=== PATIENT | female | born 1970 | race African-American/Black ===

== ENCOUNTER 2017-09-20 10:37 | Emergency (ER) | payer SELFPAY ==
[2017-09-20 10:44] VITALS: TEMP 98.6; BMI 23.3
[2017-09-20] MEDS ORDERED: SODIUM CHLORIDE 1,000 ML IV STA (11:28)
[2017-09-20] MEDS ORDERED: METOCLOPRAMIDE HCL INJECTION 10 MG/2 ML VIAL IVPUSH ONE (11:28)
[2017-09-20] MEDS ORDERED: KETOROLAC TROMETHAMINE 15 MG/ML VIAL IVPUSH ONE (11:29)
[2017-09-20] MEDS ORDERED: METOCLOPRAMIDE HCL INJECTION 10 MG/2 ML VIAL ONE (11:35)
[2017-09-20] MEDS ORDERED: KETOROLAC TROMETHAMINE 15 MG/ML VIAL ONE (11:35)
--- NOTE | 2017-09-20 11:36 | PDOC ---
History of Present Illness - General Chief Complaint: Migraine Headache Stated Complaint: MIGRAINES Time Seen by Provider: 09/20/17 11:08 - History of Present Illness Initial Comments: 09/20/17 11:32 Ms. Hallman is a 46 yo female w/ pmh of Migraines who presents c/o a 2 day history of severe headache. She says it was slow in onset and is a pressing feeling in the front of her head. It is not the worst headache of her life but she rates it as severely painful. She typically takes triptans for her migraines but ran out of insurance and so was not able to fulfill her Rx. The patient denies chest pain, shortness of breath, and dizziness. Denies fever , chills, nausea, vomit, diarrhea and constipation. Denies dysuria, frequency, urgency and hematuria. Allergies: NKDA Past History - Past Medical History Allergies/Adverse Reactions: Allergies Allergy/AdvReac Type Severity Reaction Status Date / Time No Known Allergies Allergy Verified 09/20/17 10:44 Home Medications: Ambulatory Orders Topiramate [Topamax] 50 mg PO ONCE PRN #14 tablet 09/20/17 COPD: No Other medical history: MIGRAINES - Suicide/Smoking/Psychosocial Hx Smoking History: Never smoked Have you smoked in the past 12 months: No Hx Alcohol Use: No Drug/Substance Use Hx: No Substance Use Type: None Review of Systems - Review of Systems Comments:: 09/20/17 11:36 GENERAL/CONSTITUTIONAL: No fever or chills. No weakness. HEAD, EYES, EARS, NOSE AND THROAT: No change in vision. No ear pain or discharge. No sore throat. CARDIOVASCULAR: No chest pain or shortness of breath RESPIRATORY: No cough, wheezing, or hemoptysis. GASTROINTESTINAL: No nausea, vomiting, diarrhea or constipation. GENITOURINARY: No dysuria, frequency, or change in urination. MUSCULOSKELETAL: No joint or muscle swelling or pain. No neck or back pain. SKIN: No rash NEUROLOGIC: +2 day headache as described. No vertigo, loss of consciousness, or change in strength/sensation. ENDOCRINE: No increased thirst. No abnormal weight change HEMATOLOGIC/LYMPHATIC: No anemia, easy bleeding, or history of blood clots. ALLERGIC/IMMUNOLOGIC: No hives or skin allergy. *Physical Exam - Vital Signs Last Vital Signs Temp Pulse Resp BP Pulse Ox 98.6 F 102 H 18 140/85 100 09/20/17 10:41 09/20/17 10:41 09/20/17 10:41 09/20/17 10:41 09/20/17 10:41 - Physical Exam Comments: 09/20/17 11:36 GENERAL: Awake, alert, and fully oriented, in no acute distress HEAD: No signs of trauma, normocephalic, atraumatic EYES: PERRLA, EOMI, sclera anicteric, conjunctiva clear ENT: Auricles normal inspection, hearing grossly normal, nares patent, oropharynx clear without exudates. Moist mucosa NECK: Normal ROM, supple, no lymphadenopathy, JVD, or masses LUNGS: No distress, speaks full sentences, clear to auscultation bilaterally HEART: Regular rate and rhythm, normal S1 and S2, no murmurs, rubs or gallops, peripheral pulses normal and equal bilaterally. ABDOMEN: Soft, nontender, normoactive bowel sounds. No guarding, no rebound. No masses EXTREMITIES: Normal inspection, Normal range of motion, no edema. No clubbing or cyanosis. NEUROLOGICAL: Cranial nerves II through XII grossly intact. Normal speech, normal gait, no focal sensorimotor deficits SKIN: Warm, Dry, normal turgor, no rashes or lesions noted. Medical Decision Making - Medical Decision Making 09/20/17 11:39 Patient presents w/ symptoms c/w migraine with migraine history. Given slow onset of symptoms and no neurological deficits concern for acute cranial process low. 09/20/17 12:58 Patient reporting relief of headache with IV hydration / pain medication. Will d /c to home once fluids have finished w/ Rx for migraine relief. 09/20/17 14:26 Patient resting comfortably, topamax Rx sent to pharmacy and neurology follow- up given. Discharging patient. *DC/Admit/Observation/Transfer Diagnosis at time of Disposition: Migraine Qualifiers: Migraine type: unspecified Status migrainosus presence: without status migrainosus Intractability: not intractable Qualified Code(s): G43.909 - Migraine, unspecified, not intractable, without status migrainosus - Discharge Dispostion Disposition: HOME - Prescriptions Prescriptions: Topiramate [Topamax] 50 mg PO ONCE PRN #14 tablet PRN Reason: Headache - Referrals - Patient Instructions Printed Discharge Instructions: DI for Migraine Additional Instructions: Please return if any fever, increase in pain, or other concerning symptoms. - Post Discharge Activity
--- NOTE | 2017-09-20 11:51 | PDOC ---
Attending Attestation - HPI HPI: 09/20/17 12:12 Pt is a 46 yo F with a PMHx of Migraines who presents to the ED with migraines for the past 2 days. Patient reports sharp, throbbing, headache, 10/10 with associated nausea and light sensitivity. Patient reports her migraines are similar to what she experiences in the past. Patient ran out of her medications due to insurance issues. - Physicial Exam PE: 09/20/17 12:13 Vitals: Triage Vital signs reviewed General Appearance: no acute distress, well nourished well developed, Head: Atraumatic, normocephalic Neck: Supple;No Nuchal rigidity Chest Wall: Nontender Cardiac: Regular rate and rhythm, no murmurs, no rubs, no gallops, Lungs: Clear to auscultation bilateral, good air movement bilaterally, Abdomen: Soft, nondistended, normal bowel sounds, nontender to palpation Extremities: Full range of motion to all extremities, no cyanosis, clubbing, or edema Skin: Warm and dry, no rashes or lesions, no petechiae - Medical Decision Making 09/20/17 12:13 Documentation prepared by Tavia Umanzor, acting as manager medical for Cruz Peters MD, /DO. <Tavia Umanzor - Last Filed: 09/20/17 12:20> - Resident Resident Name: EnricofrankSiddharth - ED Attending Attestation I have performed the following: I have examined & evaluated the patient, The case was reviewed & discussed with the resident, I agree w/resident's findings & plan, Exceptions are as noted - HPI HPI: 09/20/17 16:54 Chin with chronic headache history. No red flags on headache history ran out of her topiramate at home normal neurologic examination we'll treat with basic migraine medications and reassess Reevaluation headache completely resolved patient asking to go home we'll discharge with prescription for topiramate neurology follow-up Findings, the need for follow-up and strict return instructions discussed with patient. <Cruz Peters - Last Filed: 09/20/17 16:55>
[2017-09-20] MEDS ORDERED: TOPIRAMATE 25 MG TABLET (FP) PO ONE (11:58)
[2017-09-20] MEDS ORDERED: TOPIRAMATE 25 MG TABLET (FP) ONE (12:05)
[2017-09-20 14:55] VITALS: BP 115/76; PULSE 68
== END 2017-09-20 14:55 | disposition home or self-care (01) ==
LOC: JER 10:37 → JERFT 10:37 → JER 14:55
DX: G43.909 Migraine, unspecified, not intractable, without status migrainosus (principal)
CPT/HCPCS: 84703; 99283-25

== ENCOUNTER 2018-11-14 16:31 | Emergency (ER) | payer OTHER ==
[2018-11-14 16:48] VITALS: PULSE 78; TEMP 98.2; BMI 29.0
[2018-11-14 16:49] VITALS: BP 133/76
--- NOTE | 2018-11-14 17:51 | PDOC ---
History of Present Illness - General Chief Complaint: Pain Stated Complaint: LT FOOT PAIN Time Seen by Provider: 11/14/18 17:22 History Source: Patient Exam Limitations: No Limitations - History of Present Illness Initial Comments: 11/14/18 17:45 48 year old female with no significant medical history and surgical history of right knee surgery, present with left foot pain x 3 days. Patient reports pain from ankle radiating into heel of left foot making it difficult to walk. Denies numbness or tingling in toes. Occurred: reports: other (3 days ) Severity: Yes: moderate Lower Extremity Pain Location: left: 1st toe, heel, ankle Method of Injury: Yes: unknown Modifying Factors: improves with: immobilization, pain medication Lower Ext. Injury Location - Specific Injury Location Hips: bilateral hip: no evidence of injury Legs: bilateral: normal inspection Knees: bilateral no evidence of injury Ankle: bilateral normal inspection, bilateral normal range of motion, bilateral non-tender Foot: left foot pain, left foot swelling Extremity Pain Location - Extremity Pain Location Extremity Pain Locations: left: 1st toe, heel, ankle Past History - Past Medical History Allergies/Adverse Reactions: Allergies Allergy/AdvReac Type Severity Reaction Status Date / Time No Known Allergies Allergy Verified 11/14/18 16:46 Home Medications: Ambulatory Orders Ibuprofen 600 mg PO TID #20 tablet 11/14/18 COPD: No - Immunization History Immunization Up to Date: Yes - Suicide/Smoking/Psychosocial Hx Smoking History: Never smoked Have you smoked in the past 12 months: No Information on smoking cessation initiated: No Hx Alcohol Use: No Drug/Substance Use Hx: No Substance Use Type: None Review of Systems - Review of Systems Able to Perform ROS?: Yes Is the patient limited Telugu proficient: No Constitutional: No: Chills, Fever, Night Sweats HEENTM: No: Ear Discharge, Nose Pain, Nose Congestion, Throat Pain, Throat Swelling Respiratory: No: Cough, Orthopnea, Wheezing Cardiac (ROS): No: Chest Pain, Lightheadedness, Palpitations ABD/GI: No: Poor Appetite, Indigestion, Abdominal cramping : No: Hematuria, Incontinence Musculoskeletal: Yes: Joint Pain. No: Joint Swelling, Muscle Pain, Muscle Weakness Integumentary: Yes: Dryness *Physical Exam - Vital Signs Last Vital Signs Temp Pulse Resp BP Pulse Ox 98.2 F 78 17 133/76 100 11/14/18 16:46 11/14/18 16:46 11/14/18 16:46 11/14/18 16:46 11/14/18 16:46 - Physical Exam General Appearance: Yes: Nourished, Appropriately Dressed HEENT: positive: TMs Normal, Pharynx Normal Neck: positive: Supple. negative: Lymphadenopathy (R), Lymphadenopathy (L) Respiratory/Chest: positive: Lungs Clear, Normal Breath Sounds Cardiovascular: positive: Regular Rate, S1, S2 Musculoskeletal: positive: Normal Inspection. negative: CVA Tenderness Extremity: positive: Normal Capillary Refill, Other (bottom of feet dry scaly with hard yellow calluses under great toe, swelling dorsal foot below great toe , mildly tender, flex and extend with no pain ) Neurologic: positive: english language learner teacher II-XII NML intact, Fully Oriented, Alert Moderate Sedation - Procedure Monitoring Vital Signs: Procedure Monitoring Vital Signs Temperature 98.2 F 11/14/18 16:46 Pulse Rate 78 11/14/18 16:46 Respiratory Rate 17 11/14/18 16:46 Blood Pressure 133/76 11/14/18 16:46 O2 Sat by Pulse Oximetry (%) 100 11/14/18 16:46 Medical Decision Making - Medical Decision Making 11/14/18 17:55 48 year old female with no significant medical history and surgical history of right knee surgery, present with left foot pain x 3 days. Plan xray of left foot analgesia ordered 11/14/18 19:06 xray of foot with sesimoid bone to left foot and heel spur referred to parking lot supervisor *DC/Admit/Observation/Transfer Diagnosis at time of Disposition: Fracture of sesamoid bone of foot, closed Qualifiers: Encounter type: initial encounter Laterality: left Qualified Code(s): S92.812A - Other fracture of left foot, initial encounter for closed fracture Heel spur Qualifiers: Laterality: left Qualified Code(s): M77.32 - Calcaneal spur, left foot - Discharge Dispostion Disposition: HOME Condition at time of disposition: Good - Prescriptions Prescriptions: Ibuprofen 600 mg PO TID #20 tablet - Referrals Schedule a call back: xray of foot Referrals: Aria Raza MD [Non Staff, Medical] - 2 Days Zeeshan Ratliff MD [Staff Physician] - 2 Days - Patient Instructions Printed Discharge Instructions: DI for Metatarsalgia Additional Instructions: May wear post-op shoe for comfort. Please call parking lot supervisor for follow up appointment as soon as possible Take ibuprofen for pain 3 times daily with food. Return to ed for worsening symptoms - Post Discharge Activity Forms/Work/School Notes: Back to Work
[2018-11-14] MEDS ORDERED: IBUPROFEN 600 MG TABLET (FP) PO ONE ×2 (17:56→18:06)
== END 2018-11-14 19:22 | disposition home or self-care (01) ==
LOC: JERFT 16:31
DX: S92.812A Other fracture of left foot, initial encounter for closed fracture (principal); M77.32 Calcaneal spur, left foot; L84 Corns and callosities; X58.XXXA Exposure to other specified factors, initial encounter; Y93.89 Activity, other specified; Y92.038 Other place in apartment as the place of occurrence of the external cause; Y99.8 Other external cause status
CPT/HCPCS: 73610-TC-LT-FY; 73630-TC-LT; 99281-25

== ENCOUNTER 2019-07-14 13:50 | Emergency (ER) | payer BC, OTHER ==
--- NOTE | 2019-07-14 13:56 | PDOC ---
Rapid Medical Evaluation Time Seen by Provider: 07/14/19 13:54 Medical Evaluation: Allergies Allergy/AdvReac Type Severity Reaction Status Date / Time No Known Allergies Allergy Verified 11/14/18 16:46 07/14/19 13:55 HPI: Swollen and painful vagina x3 days with discharge PE: Deferred ORDERS: UA Cx GC U Preg 07/14/19 13:56 Discharge Disposition - Diagnosis Vaginal discharge - Referrals - Patient Instructions - Post Discharge Activity
[2019-07-14 13:58] VITALS: PULSE 81; TEMP 98.1; BMI 28.1
[2019-07-14 14:00] VITALS: BP 154/84
--- NOTE | 2019-07-14 15:04 | PDOC ---
History of Present Illness - General Chief Complaint: Vaginal Sxs Stated Complaint: PELVIC PAIN Time Seen by Provider: 07/14/19 13:54 History Source: Patient Exam Limitations: Clinical Condition - History of Present Illness Initial Comments: 07/14/19 15:06 Patient with no sig PMhx present with complains of 3 days h/o vaginal discharge and vulva with urethra with burning with urination. Patient report she had sex with 4 days ago after a while without sex and started having vaginal discharge and irritation the next day. Patient denies urinary frequency or dysuria. Denies pelvic pains, N/V, fever, chills, back pains. Denies any other symptoms Is this a multiple visit Asthma Patient?: No Timing/Duration: other (3 days) Past History - Past Medical History Allergies/Adverse Reactions: Allergies Allergy/AdvReac Type Severity Reaction Status Date / Time No Known Allergies Allergy Verified 07/14/19 13:58 Home Medications: Ambulatory Orders metroNIDAZOLE [Flagyl -] 500 mg PO DAILY #14 tablet 07/14/19 COPD: No - Immunization History Immunization Up to Date: Yes - Psycho Social/Smoking Cessation Hx Smoking History: Never smoked Have you smoked in the past 12 months: No Information on smoking cessation initiated: No Hx Alcohol Use: No Drug/Substance Use Hx: No Substance Use Type: None Review of Systems - Review of Systems Able to Perform ROS?: Yes Is the patient limited Vietnamese proficient: No Constitutional: No: Chills, Fever, Malaise HEENTM: No: Symptoms Reported Respiratory: No: Symptoms reported Cardiac (ROS): No: Symptoms Reported ABD/GI: No: Symptoms Reported, Nausea, Vomiting : Yes: Symptoms Reported, See HPI, Burning, Discharge (yellow discharge). No : Dysuria, Frequency, Flank Pain, Hematuria, Incontinence, Pain, Urgency Musculoskeletal: No: Symptoms Reported, Back Pain Integumentary: No: Symptoms Reported Neurological: No: Symptoms reported All Other Systems: Reviewed and Negative *Physical Exam - Vital Signs Last Vital Signs Temp Pulse Resp BP Pulse Ox 98.1 F 81 17 154/84 100 07/14/19 13:56 07/14/19 13:56 07/14/19 13:56 07/14/19 13:56 07/14/19 13:56 - Physical Exam General Appearance: Yes: Nourished, Appropriately Dressed. No: Apparent Distress HEENT: positive: Normal ENT Inspection Neck: positive: Supple Respiratory/Chest: negative: Respiratory Distress, Accessory Muscle Use Female Pelvic Exam: positive: normal external exam, cervical os closed, normal adnexa, discharge (moderate amount of light yellow malodorous discharge in vaginal vault). negative: CMT, lesions, Bartholin mass, adnexal tenderness, vaginal bleeding Gastrointestinal/Abdominal: positive: Normal Bowel Sounds. negative: Tender, Organomegaly Musculoskeletal: positive: Normal Inspection. negative: CVA Tenderness Extremity: positive: Normal Inspection Integumentary: positive: Normal Color Neurologic: positive: Fully Oriented, Alert, Normal Response Medical Decision Making - Medical Decision Making Medical Decision Makin07/14/19 15:06 Patient with no sig PMhx present with complains of 3 days h/o vaginal discharge and vulva with urethra with burning with urination. Patient report she had sex with 4 days ago after a while without sex and started having vaginal discharge and irritation the next day. Patient denies urinary frequency or dysuria. Denies pelvic pains, N/V, fever, chills, back pains. Denies any other symptoms Exam significant for moderate amount of light yellow malodorous discharge in vaginal vault. No blood in vaginal vault. No CMT. Symptoms likely bacterial vaginosis. Culture of vaginal discharge obtained. UA, urine hCG a urine culture labs ordered. Urine GC and chlamydia tests ordered. Patient will be treated for BV with 7 days course of Flagyl. Patient will be contacted with culture results and will treat accordingly. Patient advised to follow-up with her DIRECTOR OF RETAIL in a few days for reassessment and patient agrees to follow-up Discharge - Discharge Information Problems reviewed: Yes Clinical Impression/Diagnosis: Vaginal discharge, Vaginitis and vulvovaginitis Condition: Stable Disposition: HOME - Admission No - Additional Discharge Information Prescriptions: metroNIDAZOLE [Flagyl -] 500 mg PO DAILY #14 tablet - Follow up/Referral Referrals: Charlotte Sinha MD [Primary Care Provider] - - Patient Discharge Instructions Patient Printed Discharge Instructions: DI for Vaginal Discharge Additional Instructions: vaginal discharge is consistent with bacterial vaginosis. You will treated for bacterial vaginosis pending results of cultures obtained and your be contacted with culture results. Follow-up with her DIRECTOR OF RETAIL for reassessment in a few days. - Post Discharge Activity
[2019-07-14 15:28] LABS: EPI CELLS 1.4 /HPF (0-5/HPF); HYALINE CASTS 4 /lpf (0-8); PH,URINE 5.5 (5.0-8.0); URINE APPEARANCE CLEAR; URINE BACTERIA 13.2 /hpf (NEGATIVE); URINE BILIRUBIN NEGATIVE (NEGATIVE); URINE COLOR YELLOW; URINE GLUCOSE (UA) NEGATIVE (NEGATIVE); URINE KETONE NEGATIVE (NEGATIVE); URINE LEUK ESTERASE 1+ (NEGATIVE); URINE NITRITE NEGATIVE (NEGATIVE); URINE PROTEIN NEGATIVE (NEGATIVE); URINE RBC 1 /hpf (0-4); URINE UROBILINOGEN 0.2 mg/dL (0.2-1.0); URINE WBC 7 /hpf (0-5)
[2019-07-14 17:26] LABS: HCG,QUALITATIVE URINE Negative
== END 2019-07-14 15:13 | disposition home or self-care (01) ==
LOC: JERFT 13:50
DX: N89.8 Other specified noninflammatory disorders of vagina (principal); N76.0 Acute vaginitis
CPT/HCPCS: 36415; 81003; 84703; 87070; 87077; 87086; 87205; 87491; 87591; 99283-25

== ENCOUNTER 2019-09-08 11:05 | Emergency (ER) | payer SELFPAY ==
[2019-09-08 11:09] VITALS: TEMP 98.1; BMI 27.3
--- NOTE | 2019-09-08 12:30 | PDOC ---
Documentation entered by Noé Salas SCRIBE, acting as scribe for Jana Mosquera MD. Jana Mosquera MD: This documentation has been prepared by the Josue patterson Daniel, SCRIBE, under my direction and personally reviewed by me in its entirety. I confirm that the documentation accurately reflects all work, treatment, procedures, and medical decision making performed by me. History of Present Illness - General Chief Complaint: Vaginal Bleeding Stated Complaint: R/O MISSCARIAGE / 8+ WKS Time Seen by Provider: 09/08/19 11:33 History Source: Patient Exam Limitations: No Limitations - History of Present Illness Initial Comments: 09/08/19 12:18 The patient is a 48 year old G6A3P2 female, currently approx 9 wks preg by dates with no past medical history here today for evaluation of 2 weeks of vaginal bleeding. The patient reports that she began to have vaginal bleeding 2 weeks ago and describes it as intermittent dark red blood with associated cramping. She reports that on friday (09/04/19) she passed a large clot after going to the bathroom and has since had more constant bright red vaginal bleeding with smaller clots. She reports heavier bleeding since last night and that she had to use half a box of pads since then due to the amount of bleeding. She also reports that her cramping has improved and is now a 3/10 in severity. She states that she had a positive home test, that her LMP was 07/05/19, and that her current symptoms dont feel like her periods. She does not have an OB as she lost her insurance. Patient denies headache, dizziness. Denies fever, chills. Denies chest pain, shortness of breath. Denies nausea, vomiting, diarrhea. DEnies urinary sxs. Allergies: NKA PCP: Charlotte Sinha \ Past History - Past Medical History Allergies/Adverse Reactions: Allergies Allergy/AdvReac Type Severity Reaction Status Date / Time No Known Allergies Allergy Verified 09/08/19 11:09 Home Medications: Ambulatory Orders NK [No Known Home Medication] 09/08/19 COPD: No - Immunization History Immunization Up to Date: Yes - Psycho Social/Smoking Cessation Hx Smoking History: Never smoked Have you smoked in the past 12 months: No Information on smoking cessation initiated: No Hx Alcohol Use: No Drug/Substance Use Hx: No Substance Use Type: None Review of Systems - Review of Systems Able to Perform ROS?: Yes Comments:: 09/08/19 12:18 GENERAL/CONSTITUTIONAL: No fever or chills. No weakness. HEAD, EYES, EARS, NOSE AND THROAT: No change in vision. No ear pain or discharge. No sore throat. GASTROINTESTINAL: +abdominal cramping. No nausea, vomiting, diarrhea or constipation. GENITOURINARY: +vaginal bleeding with passage of clots. No dysuria, frequency, or change in urination. CARDIOVASCULAR: No chest pain or shortness of breath. RESPIRATORY: No cough, wheezing, or hemoptysis. MUSCULOSKELETAL: No joint or muscle swelling or pain. No neck or back pain. SKIN: No rash NEUROLOGIC: No headache, vertigo, loss of consciousness, or change in strength/ sensation. ENDOCRINE: No increased thirst. No abnormal weight change. HEMATOLOGIC/LYMPHATIC: No anemia, easy bleeding, or history of blood clots. ALLERGIC/IMMUNOLOGIC: No hives or skin allergy. *Physical Exam - Vital Signs Last Vital Signs Temp Pulse Resp BP Pulse Ox 98.1 F 95 H 19 174/100 H 99 09/08/19 11:06 09/08/19 11:06 09/08/19 11:06 09/08/19 11:06 09/08/19 11:06 - Physical Exam Comments: 09/08/19 12:19 GENERAL: Awake, alert, and fully oriented, in no acute distress EYES: PERRLA, EOMI, sclera anicteric, conjunctiva clear ENT: Oropharynx clear without exudates. Moist mucosa NECK: Normal ROM, supple, no lymphadenopathy, JVD, or masses LUNGS: Breath sounds equal, clear to auscultation bilaterally. No wheezes, and no crackles HEART: Regular rate and rhythm, normal S1 and S2, no murmurs, rubs or gallops ABDOMEN: Soft, nontender, normoactive bowel sounds. No guarding, no rebound. No masses PELVIC: normal ext genitalia. +pooling of dark blood with small clots in speculum. No midline or adnexal tenderness. No CMT. EXTREMITIES: Normal range of motion, no edema. No cords, erythema, or tenderness. WWP NEUROLOGICAL: Normal speech, cranial nerves intact, equal strength and sensation b.l SKIN: Warm, Dry, normal turgor, no rashes or lesions noted. ED Treatment Course - LABORATORY CBC & Chemistry Diagram: 09/08/19 11:48 09/08/19 11:48 - RADIOLOGY Radiology Studies Ordered: Category Date Time Status TRANSVAGINAL US PREG [US] Stat Ultrasound 09/08/19 11:34 Ordered Medical Decision Making - Medical Decision Making 09/08/19 12:28 48-year-old female, approximately 9 weeks by dates presents the emergency department with 2 weeks of vaginal bleeding, cramping with heavier bleeding since last night. Vitals remarkable for elevated blood pressure on arrival, this has improved to the 150 systolic without intervention. Patient has no history of elevated blood pressure, but does report she is nervous secondary to the heavy bleeding. Exam with pooling of blood in the vaginal vault. Symptoms concerning for spontaneous . Plan: Labs Urinalysis Transvaginal ultrasound Repeat blood pressure Patient declines pain medications for now Reassess 09/08/19 14:24 Labs within normal limits. Beta-hCG is less than 1. Ultrasound reveals endometrial thickening which could be physiologic. Symptoms could be due to menstrual cycle UA cancelled as pt has no urinary sxs and is not . Patient is well-appearing, rpt BP 130s systolic w/o intervention Will refer to PMD for BP check and OB for f/u Bleeding return precautions discussed Pt clinically stable for DC home I discussed the physical exam findings, ancillary test results and final diagnoses with the patient. I answered all of the patient's questions. The patient was satisfied with the care received and felt comfortable with the discharge plan and treatment plan. The patient will call their primary care physician within 24 hours to arrange follow-up and will return to the Emergency Department with any new, persistent or worsening symptoms. Discharge - Discharge Information Problems reviewed: Yes Clinical Impression/Diagnosis: Vagina bleeding Condition: Stable Disposition: HOME - Admission No - Follow up/Referral Referrals: Charlotte Sinha MD [Primary Care Provider] - - Patient Discharge Instructions Patient Printed Discharge Instructions: DI for Vaginal Bleeding Additional Instructions: Follow-up with your sheltered workshop worker within 1 to 2 weeks for your vaginal bleeding. Your blood work today showed that you are not . It is possible that the symptoms are due to your period. Your blood pressure was elevated in the emergency department. Follow-up with your primary care doctor within 1 week for recheck. It is possible you may need to start on blood pressure medications if it continues to be elevated. Return to the emergency department if you have any new, worsening or concerning symptoms such as soaking through 1 pad per hour for more than 2 hours - Post Discharge Activity
[2019-09-08 12:36] LABS: ALBUMIN 3.4 g/dl (3.4-5.0); BILIRUBIN,TOTAL 0.2 mg/dL (0.2-1); BLOOD UREA NITROGEN 10.4 mg/dL (7-18); CALCIUM 9.1 mg/dL (8.5-10.1); CREATININE 0.9 mg/dL (0.55-1.3); POTASSIUM 5.2 mmol/L (3.5-5.1); TOT PROT 8.6 g/dl (6.4-8.2)
[2019-09-08 12:43] LABS: BASO % 2.7 % (0-2.0); EOS % 6.7 % (0-4.5); HEMATOCRIT 33.1 % (32.4-45.2); HEMOGLOBIN 10.1 GM/dL (10.7-15.3); LYMPH % 39.2 % (8-40); MCH 24.1 pg (25.7-33.7); MCHC 30.4 g/dl (32.0-36.0); MEAN CELL VOLUME 79.5 fl (80-96); MEAN PLT VOLUME 8.9 fl (7.5-11.1); NEUT % 39.4 % (42.8-82.8); PLATELET COUNT 243 K/MM3 (134-434); RBC 4.17 M/mm3 (3.60-5.2); RDW 20.8 % (11.6-15.6)
[2019-09-08 12:47] LABS: WHITE BLOOD COUNT 5.2 K/mm3 (4.0-10.0)
[2019-09-08 13:53] LABS: ANISOCYTOSIS 2+; MACROCYTOSIS 0; PLATELET ESTIMATE NORMAL; TEAR DROP CELLS 1+
[2019-09-08 14:04] VITALS: BP 131/89; PULSE 84
== END 2019-09-08 14:58 | disposition home or self-care (01) ==
LOC: JER 11:05
DX: N93.9 Abnormal uterine and vaginal bleeding, unspecified (principal)
CPT/HCPCS: 36415; 76830-TC; 80053; 84702; 85025; 86850; 86900; 86901; 99283-25

== ENCOUNTER 2020-08-04 23:18 | Emergency (ER) | payer OTHER ==
[2020-08-04 23:24] VITALS: BP 148/86; PULSE 86; TEMP 98; BMI 28.1
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
--- NOTE | 2020-08-05 00:09 | PDOC ---
History of Present Illness - General Chief Complaint: Abscess Boil Stated Complaint: PERSONAL Time Seen by Provider: 08/04/20 23:33 - History of Present Illness Initial Comments: 08/05/20 00:13 49 yo female with no significant pmh presents to ED for left labial irritation for the past 48 hours. Pt explains that left labia has been irritating her where she feels that it has been hard and gotten swollen and started on left labia and extended up to her left groin area. Pt explains also does have nodule on her left groin. Pt denies any recent trauma to the area, but may have itched the area before sxs occurred. Pt denies dysuria, urinary frequency, vaginal discharge, diarrhea, constipation, nausea, vomiting, fevers, chills, IV drug abuse, sexual intercourse within the last year, or hx of any STDs. PMH: denies Meds: denies Alllergies: denies PSH: denies Social: denies smoking drugs or alcohol. Pt has not had sexual intercourse for one year PCP: Does not have one OBGYN: Does not have one Past History - Medical History Allergies/Adverse Reactions: Allergies Allergy/AdvReac Type Severity Reaction Status Date / Time No Known Allergies Allergy Verified 08/04/20 23:24 Home Medications: Ambulatory Orders Acyclovir [Zovirax -] 400 mg PO TID #15 tablet 08/05/20 COPD: No - Reproductive History Is Patient Now?: No (#): 6 Para: 2 Therapeutic (s) & number: No Spontaneous : 3 - Immunization History Immunization Up to Date: Yes - Psycho-Social/Smoking History Smoking History: Never smoked Have you smoked in the past 12 months: No Review of Systems - Review of Systems Comments:: ROS GENERAL/CONSTITUTIONAL: No fever or chills. No weakness. HEAD, EYES, EARS, NOSE AND THROAT: No change in vision. No ear pain or discharge. No sore throat. CARDIOVASCULAR: No chest pain or shortness of breath RESPIRATORY: No cough, wheezing, or hemoptysis. GASTROINTESTINAL: No nausea, vomiting, diarrhea or constipation. GENITOURINARY: No dysuria, frequency, or change in urination. Vaginal Pain MUSCULOSKELETAL: No joint or muscle swelling or pain. No neck or back pain. NEUROLOGIC: No headache, vertigo, loss of consciousness, or change in strength/sensation. ENDOCRINE: No increased thirst. No abnormal weight change ALLERGIC/IMMUNOLOGIC: No hives or skin allergy. *Physical Exam - Vital Signs Last Vital Signs Temp Pulse Resp BP Pulse Ox 98 F 86 18 148/86 100 08/04/20 23:20 08/04/20 23:20 08/04/20 23:20 08/04/20 23:20 08/04/20 23:20 - Physical Exam GENERAL: Awake, alert, and fully oriented, in no acute distress HEAD: No signs of trauma, normocephalic, atraumatic EYES:, EOMI, sclera anicteric, conjunctiva clear ENT: Auricles normal inspection, hearing grossly normal, nares patent, oropharynx clear without exudates. Moist mucosa NECK: Normal ROM, supple, no lymphadenopathy, JVD, or masses LUNGS: No distress, speaks full sentences, clear to auscultation bilaterally HEART: Regular rate and rhythm, normal S1 and S2, no murmurs, rubs or gallops, peripheral pulses normal and equal bilaterally. ABDOMEN: Soft, nontender, normoactive bowel sounds. No guarding, no rebound. No masses NEUROLOGICAL: Cranial nerves II through XII grossly intact. Normal speech, normal gait : 1/2 cm x 1 cm ulcer on left lower labia with no erythema or pus. NO erythema or swelling in the area. Palpable left inguinal lymph node. Vaginal canal has slight white discharge with no tenderness to palpation. Chaperoned by Dr. Kezia Fabian Medical Decision Making - Medical Decision Making 49 yo female coming in with no pmh and no hx of std or sti with left labial ulcer. Pt agreed for testing for std. Will test pt for chlamydia, gonorrhea, hiv, and syphillis. 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 Follow up with OBGYN. Referral made. Discharge - Discharge Information Problems reviewed: Yes Clinical Impression/Diagnosis: Vaginal pain Condition: Good Disposition: HOME - Additional Discharge Information Prescriptions: Acyclovir [Zovirax -] 400 mg PO TID #15 tablet - Follow up/Referral Referrals: Keara Noriega MD [Staff Physician] - - Patient Discharge Instructions Additional Instructions: You came to the ED for vaginal pain. At the ED we evaluated you and tested you for syphilis, HIV, gonorrhea and chlamydia. We also gave you herpes medication to take at home and to follow up with your obgyn for. Please make an appointment with your obgyn within the next few days. We referred you to one. Please come back if you have any of the following: - worsening swelling - redness in the area - increased pain - discharge from the area Any emergent symptoms please call for medical help right away. - Post Discharge Activity
--- NOTE | 2020-08-05 00:14 | PDOC ---
Attending Attestation - Resident Resident Name: Jorden Neves - ED Attending Attestation I have performed the following: I have examined & evaluated the patient, The case was reviewed & discussed with the resident, I agree w/resident's findings & plan - HPI HPI: 08/05/20 00:28 Pt comes with a lesion on her left labia x 2 days. Pt has herpes - Physicial Exam PE: 08/05/20 06:56 Exam normal except for herpetic lesion on the left labia - Medical Decision Making 08/05/20 06:56 Pt will get STD testing. We will treat for herpes recurrent. Follow with [facility] or STD clinic Discharge - Discharge Information Problems reviewed: Yes Clinical Impression/Diagnosis: Vaginal pain Condition: Good Disposition: HOME - Additional Discharge Information Prescriptions: Acyclovir [Zovirax -] 400 mg PO TID #15 tablet - Follow up/Referral Referrals: Keara Noriega MD [Staff Physician] - - Patient Discharge Instructions Additional Instructions: You came to the ED for vaginal pain. At the ED we evaluated you and tested you for syphilis, HIV, gonorrhea and chlamydia. We also gave you herpes medication to take at home and to follow up with your obgyn for. Please make an appointment with your obgyn within the next few days. We referred you to one. Please come back if you have any of the following: - worsening swelling - redness in the area - increased pain - discharge from the area Any emergent symptoms please call for medical help right away. - Post Discharge Activity
== END 2020-08-05 01:35 | disposition home or self-care (01) ==
LOC: JER 23:18
DX: R10.2 Pelvic and perineal pain (principal)
CPT/HCPCS: 36415; 86593; 86780; 87389; 87491; 87591; 99283-25

== ENCOUNTER 2020-12-02 18:18 | Emergency (ER) | payer OTHER ==
[2020-12-02 18:28] VITALS: TEMP 97.4; BMI 26.6
[2020-12-02 21:35] VITALS: BP 154/70; PULSE 83
== END 2020-12-02 21:00 | disposition home or self-care (01) ==
LOC: JERFT 18:18 → JER 18:18 → JERFT 21:00
DX: Z11.3 Encounter for screening for infections with a predominantly sexual mode of transmission (principal)
CPT/HCPCS: 36415; 86593; 86695; 86696; 86780; 87491; 87591; 99283-25

== ENCOUNTER 2020-12-04 19:58 | Emergency (ER) | payer OTHER ==
[2020-12-04] MEDS ORDERED: PENICILLIN G BENZATHINE 2,400,000 UNIT/4 ML PFS IM ONE (20:01)
[2020-12-04 20:06] VITALS: BP 150/90; PULSE 81; TEMP 98.2; BMI 26.6
[2020-12-04] MEDS ORDERED: PENICILLIN G BENZATHINE 1,200,000 UNIT/2 ML PFS IM ONE (20:11)
== END 2020-12-04 20:55 | disposition home or self-care (01) ==
LOC: JERFT 19:58
DX: A53.9 Syphilis, unspecified (principal)
CPT/HCPCS: 99284-25

== ENCOUNTER 2020-12-11 16:56 | Emergency (ER) | payer OTHER ==
[2020-12-11 17:31] VITALS: BP 164/85; PULSE 80; TEMP 98.1; BMI 26.6
== END 2020-12-11 18:52 | disposition home or self-care (01) ==
LOC: JERFT 16:56 → JCOVINFU 16:56 → JERFT 18:52
DX: Z70.8 Other sex counseling (principal)
CPT/HCPCS: 99281-25

== ENCOUNTER 2021-09-26 13:47 | Emergency (ER) | payer OTHER ==
[2021-09-26 15:31] VITALS: BP 168/97; PULSE 76; TEMP 98; BMI 28.1
[2021-09-26] MEDS ORDERED: KETOROLAC TROMETHAMINE 60 MG/2 ML VIAL IM ONE (16:25)
[2021-09-26] MEDS ORDERED: KETOROLAC TROMETHAMINE 60 MG/2 ML VIAL ONE (16:36)
== END 2021-09-26 18:05 | disposition home or self-care (01) ==
LOC: JERFT 13:47
PROC: 3E023GC Introduction of Other Therapeutic Substance into Muscle, Percutaneous Approach (ICD-10-PCS; principal; 2021-09-26)
DX: S83.91XA Sprain of unspecified site of right knee, initial encounter (principal); Y99.8 Other external cause status
CPT/HCPCS: 73562-TC-RT-FY; 99284-25